=== PATIENT | female | born 1980 | race Caucasian/White ===

== ENCOUNTER 2023-11-23 16:50 | Inpatient (IN) | payer SELFPAY ==
[2023-11-23 16:51] VITALS: BP 122/101; PULSE 88; RESP 18; TEMP 37.1; O2SAT 95
--- NOTE | 2023-11-23 16:59 | ED.C_ITS ---
HPI - Psych 2 General: Chief Complaint: Psychiatric Symptoms Stated Complaint: SI Time Seen by Provider: 11/23/23 16:57 History of Present Illness: 43-year-old female presents to the [facility] ency room with complaints of suicidal ideation. She is currently having significant life stressors with an ongoing divorce. Patient states she has previously been treated for bipolar and has had 2 previous admissions for suicidal ideation at facilities in [facility]. Patient currently is not on any medications due to financial constraints. She is struggling with the divorce and also states that her significant other has a restraining order against her. Related Data Home Medications Medication Instructions Recorded Confirmed No Known Home Medications 11/23/23 11/23/23 Allergies Allergy/AdvReac Type Severity Reaction Status Date / Time Sulfa (Sulfonamide Allergy ALGY-Hives Verified 11/23/23 16:58 Antibiotics) Review of Systems 2 Const: Denies: fever(s) or chills Card: Denies: chest pain Resp: Denies: dyspnea GI: Denies: abdominal pain : Denies: dysuria, urinary frequency or urinary urgency Musc: Denies: neck pain or back pain Skin/Breast: Denies: rash Physical Exam 2 Const: GENERAL APPEARANCE: cooperative ORIENTATION/CONSCIOUSNESS: Yes awake, Yes oriented to person, Yes oriented to place and Yes oriented to time HENMT: COMMON NORMALS: normocephalic, atraumatic and hearing grossly normal bilaterally HEAD & SCALP: normocephalic and atraumatic Resp: COMMON NORMALS: normal respiratory effort, No retractions, No use of accessory muscles and clear to auscultation bilaterally AUSCULTATION: clear to auscultation bilaterally Cardio: COMMON NORMALS: regular rate, regular rhythm and No murmurs present (Cardio) RATE: regular rate RHYTHM: regular rhythm GI: COMMON NORMALS: Soft to palpation and No hepatosplenomegaly present A USCULTATION: Yes normoactive bowel sounds PALPATION: Yes Soft to palpation, No Tenderness to palpation present (GI), No Guarding due to palpation present (GI) and Yes No hepatosplenomegaly present Extremity: COMMON NORMALS: normal to inspection, capillary refill normal, no clubbing, cyanosis or edema, no calf tenderness and no pedal edema Neuro: SENSORIUM/ORIENTATION: Yes oriented to person, Yes oriented to place and Yes oriented to time Skin: COMMON NORMALS: no rashes or lesions noted GENERAL SKIN EXAM: no rashes or lesions noted OTHER: Laceration with slight mucousy drainage between the fourth and fifth fingers. No epitrochlear lymph nodes no localized induration Course 2 Vital Signs: Vital signs: Vital Signs Temperature 98.4 F 11/24/23 19:43 Pulse Rate 74 11/24/23 19:43 Respiratory Rate 16 11/24/23 19:43 Blood Pressure 127/87 11/24/23 19:43 Pulse Oximetry 99 11/24/23 19:43 Oxygen Delivery Me thod Room Air 11/24/23 19:43 MDM - Psych Medical Decision Making Patient presents with with depression today for significant life stressors. She is expressing suicidal ideation directly with no specific plan at this time. Discussed with Dr. Romero will admit for suicidal ideation patient placed on 96-hour hold. Medical Records I reviewed the patient's medical records. Lab Data I reviewed the patient's lab results. 11/23/23 17:22 11/23/23 17:22 Laboratory Results WBC 15.54 10^3/uL (3.29-11.43) H 11/23/23 17:22 RBC 4.44 10^6/uL (3.85-5.65) 11/23/23 17:22 Hgb 13.20 g/dL (11.27-16.99) 11/23/23 17:22 Hct 40.4 % (36-47) 11/23/23 17:22 MCV 91.0 fl (85-98) 11/23/23 17:22 MCH 29.7 pg (27-33) 11/23/23 17: MCHC 32.7 g/dL (30-55) 11/23/23 17:22 RDW 13.5 % (12.1-15.1) 11/23/23 17:22 Plt Count 333 10^3/cmm (157-399) 11/23/23 17:22 MPV 9.5 fL (7.4-10.4) 11/23/23 17:22 Neut % (Auto) 76.6 % 11/23/23 17:22 Lymph % (Auto) 17.3 % 11/23/23 17:22 [place] % (Auto) 4.5 % 11/23/23 17:22 Eos % (Auto) 0.8 % 11/23/23 17:22 Baso % (Auto) 0.3 % 11/23/23 17:22 Neut # (Auto) 11.90 10^3/uL (1.8-7.7) H 11/23/23 17:22 Lymph # (Auto) 2.7 10^3/uL (0.8-4.8) 11/23/23 17:22 [place] # (Auto) 0.7 10^3/uL (0.2-0.9) 11/23/23 17:22 Eos # (Auto) 0.1 10^3/uL (0.0-0.8) 11/23/23 17:22 Baso # (Auto) 0.1 10^3/uL (0.0-0.1) 11/23/23 17:22 Nucleated RBC % (auto) 0 % 11/23/23 17:22 Nucleated RBCs # 0.0 /100WBC 11/23/23 17:22 Sodium 136 mmol/L (136-145) 11/23/23 17:22 Potassium 3.8 mmol/L (3.5-5.1) 11/23/23 17:22 Chloride 100 mmol/L (98-107) 11/23/23 17:22 Carbon Dioxide 26 mmol/L (22-29) 11/23/23 17:22 Anion Gap 13.8 (5-19) 11/23/23 17:22 BUN 17 mg/dL (6-20) 11/23/23 17:22 Creatinine 0.6 mg/dL (0.5-0.9) 11/23/23 17:22 GFR Calculation 109.6 mL/min (90-130) 11/23/23 17:22 Glucose 101 mg/dL (65-115) 11/23/23 17:22 Calculated Osmolality 284 mOsm/kg (285-295) L 11/23/23 17:22 Calcium 9.0 mg/dL (8.5-10.5) 11/23/23 17:22 Total Bilirubin 0.2 mg/dL (0.15-1.2) 11/23/23 17:22 AST 11 U/L (0-32) 11/23/23 17:22 ALT 16 U/L (0-33) 11/23/23 17:22 Alkaline Phosphatase 73 U/L (35-105) 11/23/23 17:22 Total Protein 6.5 g/dL (6.6-8.7) L 11/23/23 17:22 Albumin 3.9 g/dL (3.5-5.2) 11/23/23 17:22 Globulin 2.6 g/dL (1.3-4.6) 11/23/23 17:22 Salicylates < 0.3 mg/dL (3-10) L 11/23/23 17:22 Acetaminophen < 5.0 ug/mL (10-30) L 11/23/23 17:22 Ethyl Alcohol < 10 mg/dL (0-10) 11/23/23 17:22 No radiology studies performed this visit Discharge Plan Discharge Patient Disposition: Admitted As Inpatient Admit Provider: Paul Romero Clinical Impression: Suicidal ideation, Depression Condition: Stable Coding Level of Care Code ED [employer] for [employer]by
[2023-11-23 17:39] LABS: Basophils # 0.1 10^3/uL (0.0-0.1); Basophils % 0.3 %; Eosinophils # 0.1 10^3/uL (0.0-0.8); Eosinophils % 0.8 %; Hematocrit 40.4 % (36-47); Lymphocytes # 2.7 10^3/uL (0.8-4.8); Lymphocytes % 17.3 %; Mean Corpuscular HGB Conc 32.7 g/dL (30-55); Mean Corpuscular Hemoglobin 29.7 pg (27-33); Mean Platelet Volume 9.5 fL (7.4-10.4); Monocytes # 0.7 10^3/uL (0.2-0.9); Monocytes % 4.5 %; Neutrophils % 76.6 %; Nucleated Red Blood Cells % 0 %; Platelet Count 333 10^3/cmm (157-399); Red Blood Count 4.44 10^6/uL (3.85-5.65); Red Cell Distribution Width 13.5 % (12.1-15.1); White Blood Count 15.54 10^3/uL (3.29-11.43)
[2023-11-23 18:03] LABS: Alanine Aminotransferase 16 U/L (0-33); Albumin Level 3.9 g/dL (3.5-5.2); Alkaline Phosphatase 73 U/L (35-105); Anion Gap 13.8 (5-19); Aspartate Amino Transferase 11 U/L (0-32); Blood Urea Nitrogen 17 mg/dL (6-20); Carbon Dioxide 26 mmol/L (22-29); Chloride 100 mmol/L (98-107); Globulin 2.6 g/dL (1.3-4.6); Glomerular Filtration Rate 109.6 mL/min (90-130); Glucose 101 mg/dL (65-115); Osmolality Calculated 284 mOsm/kg (285-295); Potassium 3.8 mmol/L (3.5-5.1); Sodium 136 mmol/L (136-145); Total Bilirubin 0.2 mg/dL (0.15-1.2); Total Protein 6.5 g/dL (6.6-8.7)
[2023-11-23 18:11] LABS: Acetaminophen < 5.0 ug/mL (10-30); Salicylate < 0.3 mg/dL (3-10)
--- NOTE | 2023-11-23 19:19 | PC.NURSE ---
attempted to call report at this time. unable to give d/t nurses being in report.
[2023-11-23 19:37] LABS: Alcohol Level < 10 mg/dL (0-10)
[2023-11-23 19:46] VITALS: BP 154/73; PULSE 88; O2SAT 99
[2023-11-23 19:48] VITALS: BP 138/88; PULSE 91; RESP 20; TEMP 36.7; O2SAT 98
[2023-11-23] MEDS: cephALEXin 500 mg Capsule PO (20:44)
[2023-11-23] MEDS: tetanus-dipt-pertussis 0.5 mL SDV IM (20:45)
[2023-11-23] MEDS: trazodone 50 mg Tablet PO (21:03)
[2023-11-23] MEDS: hyDROXYzine 25 mg Capsule 50 MG PO (21:03)
[2023-11-23 21:37] LABS: Bilirubin Urine Negative (Negative); Blood Urine Negative (Negative); Glucose Urine UA Negative (Normal); Ketones Urine Negative (Negative); Leukocyte Esterase Urine 1+ (Negative); Nitrate Urine Negative (Negative); Protein Urine Negative (Negative); Specific Gravity, Urine 1.014 (1.005-1.030); Urine Appearance Clear (CLEAR); Urine Color Yellow (Yellow); Urobilinogen Urine 0.2 mg/dL (Negative); pH Urine 6.5 (5-7)
[2023-11-23 21:39] LABS: Add Urine Microscopic? YES; Bacteria Urine None Seen /hpf; Hyaline Casts Urine 0-4 /lpf; RBC Urine 0-2 /hpf (0-2)
[2023-11-23 21:53] LABS: Amphetamines Screen Urine Negative (Negative); Barbiturates Screen Urine Negative (Negative); Benzodiazepines Screen Urine Positive (Negative); Cocaine Screen Urine Negative (Negative); Opiate Screen Urine Negative (Negative); PCP Screen Urine Negative (Negative); THC Screen Urine Positive (Negative)
[2023-11-23 22:00] VITALS: BP 138/88; PULSE 91; RESP 20; TEMP 36.7; O2SAT 98
[2023-11-24 06:00] VITALS: BP 112/73; PULSE 72; RESP 18; TEMP 36.6; O2SAT 97
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
[2023-11-24] MEDS: cephALEXin 500 mg Capsule PO ×3 (09:23→20:59)
[2023-11-24] MEDS: hyDROXYzine 25 mg Capsule 50 MG PO ×3 (09:23→20:59)
[2023-11-24] MEDS: ibuprofen 600 mg Tablet PO ×2 (09:36→21:00)
[2023-11-24] MEDS: flu vacc pf 24-25 (6 mos+) SYRINGE 45 MCG IM (09:41)
[2023-11-24 14:00] VITALS: BP 113/70; PULSE 81; RESP 16; TEMP 36.6; O2SAT 98
[2023-11-24 19:43] VITALS: BP 127/87; PULSE 74; RESP 16; TEMP 36.9; O2SAT 99
[2023-11-24] MEDS: trazodone 50 mg Tablet PO (20:59)
[2023-11-25 06:00] VITALS: BP 119/77; PULSE 80; RESP 16; TEMP 36.8; O2SAT 98
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
[2023-11-25] MEDS: fluoxetine 20 mg Capsule PO (09:05)
[2023-11-25] MEDS: cephALEXin 500 mg Capsule PO ×3 (09:05→21:27)
[2023-11-25] MEDS: hyDROXYzine 25 mg Capsule 50 MG PO ×2 (09:08→16:37)
[2023-11-25] MEDS: OLANZapine 5 mg ODT PO (10:32)
[2023-11-25 14:00] VITALS: BP 119/74; PULSE 86; RESP 16; TEMP 37.1; O2SAT 98
[2023-11-25] MEDS: acetaminophen 325 mg Tablet 650 MG PO (16:37)
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
[2023-11-25 20:15] VITALS: BP 126/79; PULSE 80; RESP 16; TEMP 36.8; O2SAT 97
[2023-11-25] MEDS: trazodone 50 mg Tablet PO (21:27)
[2023-11-26 06:00] VITALS: BP 111/74; PULSE 92; RESP 16; TEMP 37.1; O2SAT 99
[2023-11-26] MEDS: fluoxetine 20 mg Capsule PO (09:21)
[2023-11-26] MEDS: OLANZapine 5 mg ODT PO (09:21)
[2023-11-26] MEDS: cephALEXin 500 mg Capsule PO ×2 (09:21→14:55)
[2023-11-26] MEDS: acetaminophen 325 mg Tablet 650 MG PO (09:21)
[2023-11-26 14:00] VITALS: BP 110/77; PULSE 83; RESP 16; TEMP 36.8; O2SAT 98
[2023-11-26] MEDS: hyDROXYzine 25 mg Capsule 50 MG PO (16:13)
[2023-11-26] MEDS: ibuprofen 600 mg Tablet PO (18:27)
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
--- NOTE | 2023-11-26 20:24 | CTR_ITS ---
PROCEDURE INFORMATION: Exam: CT Left Upper Extremity With Contrast, Hand Exam date and time: 11/26/2023 8:58 PM Age: 43 years old Clinical indication: Patient HX: Patient has deep open wound to crease inbetween 4th and 5th digits. ; Additional info: R/O deep infection TECHNIQUE: Imaging protocol: Computed tomography of the left upper extremity with contrast. Exam focused on the hand. Radiation optimization: All CT scans at this facility use at least one of these dose optimization techniques: automated exposure control; mA and/or kV adjustment per patient size (includes targeted exams where dose is matched to clinical indication); or iterative reconstruction. Contrast material: OMNI 350; Contrast volume: 100 ml; Contrast route: INTRAVENOUS (IV); COMPARISON: No relevant prior studies available. RADIATION DOSE METRICS: Total DLP (mGy-cm): 245.28 FINDINGS: Bones/joints: Normal. No acute fracture or dislocation. Soft tissues: Apparent wound in the 4th web space with skin and subcutaneous edema and thickening extending to the base of the 5th finger, without drainable fluid collection. No evidence of myositis or involvement of the interosseous or hypo thenar musculature. No soft tissue gas. No radiopaque foreign body. CT/CT hand LT w con [id number] IMPRESSION: Fourth webspace wound skin and subcutaneous edema and thickening but no evidence of abscess formation , myositis or deep palmar involvement at this time.
[2023-11-26 20:46] VITALS: BP 136/78; PULSE 85; RESP 17; TEMP 36.6; O2SAT 98
[2023-11-26] MEDS: amoxicillin-clav 875-125 mg Tablet 1 TAB PO (20:46)
[2023-11-26] MEDS: doxycycline 100 mg Tablet PO (20:46)
[2023-11-26] MEDS: iohexol 350 mg/mL 500 mL Btl (per mL) IV (21:07)
[2023-11-26] MEDS: trazodone 50 mg Tablet PO (21:31)
--- NOTE | 2023-11-27 05:49 | PC.NURSE ---
MILLY RN FROM [facility] PLACED IV FOR PATIENT TO HAVE FOR CT OF HER LEFT HAND.THIS NURSE AND HUMAN RESOURCES CONSULTANT BON ESCORTED PT TO CT BY WHEELCHAIR AT 2054. PT RETURNED TO UNIT AND IV WAS REMOVED BY THIS NURSE AT 2107.
[2023-11-27 06:00] VITALS: BP 123/84; PULSE 83; RESP 18; TEMP 36.6; O2SAT 97
[2023-11-27 06:45] LABS: Basophils % 0.6 %; Eosinophils # 0.1 10^3/uL (0.0-0.8); Eosinophils % 1.4 %; Hematocrit 40.7 % (36-47); Lymphocytes # 1.4 10^3/uL (0.8-4.8); Lymphocytes % 19.3 %; Mean Corpuscular HGB Conc 31.9 g/dL (30-55); Mean Corpuscular Hemoglobin 29.2 pg (27-33); Mean Corpuscular Volume 91.5 fl (85-98); Mean Platelet Volume 9.5 fL (7.4-10.4); Monocytes # 0.4 10^3/uL (0.2-0.9); Monocytes % 5.3 %; Neutrophils # 5.09 10^3/uL (1.8-7.7); Nucleated Red Blood Cells % 0 %; Platelet Count 271 10^3/cmm (157-399); Red Blood Count 4.45 10^6/uL (3.85-5.65); Red Cell Distribution Width 13.3 % (12.1-15.1); White Blood Count 6.98 10^3/uL (3.29-11.43)
[2023-11-27 06:52] LABS: Erythrocyte Sedimentation Rate 10 mm/hr (0-15)
[2023-11-27 07:05] LABS: Alanine Aminotransferase 13 U/L (0-33); Albumin Level 3.6 g/dL (3.5-5.2); Alkaline Phosphatase 61 U/L (35-105); Anion Gap 13.2 (5-19); Aspartate Amino Transferase 11 U/L (0-32); Blood Urea Nitrogen 11 mg/dL (6-20); Calcium 8.5 mg/dL (8.5-10.5); Carbon Dioxide 23 mmol/L (22-29); Chloride 105 mmol/L (98-107); Globulin 2.6 g/dL (1.3-4.6); Glomerular Filtration Rate 135.3 mL/min (90-130); Glucose 97 mg/dL (65-115); Osmolality Calculated 283 mOsm/kg (285-295); Potassium 4.2 mmol/L (3.5-5.1); Sodium 137 mmol/L (136-145); Total Bilirubin 0.2 mg/dL (0.15-1.2); Total Protein 6.2 g/dL (6.6-8.7)
[2023-11-27 07:11] LABS: Procalcitonin 0.02 ng/mL (0-0.5)
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
[2023-11-27] MEDS: fluoxetine 20 mg Capsule PO (08:45)
[2023-11-27] MEDS: amoxicillin-clav 875-125 mg Tablet 1 TAB PO ×2 (08:45→18:28)
[2023-11-27] MEDS: doxycycline 100 mg Tablet PO ×2 (08:45→18:28)
[2023-11-27] MEDS: hyDROXYzine 25 mg Capsule 50 MG PO ×3 (08:45→20:03)
[2023-11-27] MEDS: ibuprofen 600 mg Tablet PO ×2 (10:21→20:03)
[2023-11-27 14:00] VITALS: BP 117/69; PULSE 113; RESP 17; TEMP 36.9; O2SAT 95
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
[2023-11-27] MEDS: trazodone 50 mg Tablet PO (20:03)
[2023-11-27 20:10] VITALS: BP 151/77; PULSE 80; RESP 17; TEMP 36.9; O2SAT 98
--- NOTE | 2023-11-27 21:16 | PC.NURSE ---
Flushed patients wound with saline flushes x3 and placed a piece of gauze inbetween her fingers and another piece of gauze around her fingers and secured them with paper tape. patient tolerated well.
[2023-11-28 06:00] VITALS: BP 105/70; PULSE 95; RESP 16; TEMP 36.9; O2SAT 97
[2023-11-28] MEDS: amoxicillin-clav 875-125 mg Tablet 1 TAB PO ×2 (08:20→17:13)
[2023-11-28] MEDS: doxycycline 100 mg Tablet PO ×2 (08:20→17:13)
[2023-11-28] MEDS: fluoxetine 20 mg Capsule PO (08:20)
[2023-11-28] MEDS: OLANZapine 5 mg ODT PO ×2 (08:23→14:33)
[2023-11-28] MEDS: hyDROXYzine 25 mg Capsule 50 MG PO ×2 (10:29→20:26)
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
[2023-11-28 14:00] VITALS: BP 123/74; PULSE 74; RESP 16; TEMP 36.8; O2SAT 98
[2023-11-28] MEDS: ibuprofen 600 mg Tablet PO ×2 (14:33→20:25)
[2023-11-28] MEDS: trazodone 50 mg Tablet PO (20:26)
[2023-11-28 21:09] VITALS: BP 126/74; PULSE 83; RESP 18; TEMP 37.2; O2SAT 97
[2023-11-29 06:00] VITALS: BP 118/71; PULSE 81; RESP 16; TEMP 37; O2SAT 96
[2023-11-29] MEDS: fluoxetine 20 mg Capsule PO (08:36)
[2023-11-29] MEDS: amoxicillin-clav 875-125 mg Tablet 1 TAB PO ×2 (08:36→18:11)
[2023-11-29] MEDS: doxycycline 100 mg Tablet PO ×2 (08:36→18:10)
[2023-11-29] MEDS: OLANZapine 5 mg ODT PO (08:36)
[2023-11-29] MEDS: ibuprofen 600 mg Tablet PO ×2 (09:09→19:30)
[2023-11-29] MEDS: hyDROXYzine 25 mg Capsule 50 MG PO (12:16)
[2023-11-29] MEDS: guaiFENesin-dextromethorphan UDC 10 mL PO ×3 (13:01→22:16)
--- NOTE | 2023-11-29 13:51 | P.PN_ITS ---
Subjective 2 Subjective: Seen this morning. Patient doing better. Vitals/I&O/Wt Last Vital Signs Temp 98.6 F 11/29/23 06:00 Pulse 81 11/29/23 06:00 Resp 16 11/29/23 06:00 BP 118/71 11/29/23 06:00 Pulse Ox 96 11/29/23 06:00 O2 Del Method Room Air 11/27/23 06:00 Weight last 48 hrs Weight 70.67 kg Physical Exam 2 Narrative: Evaluated left hand fourth and fifth webspace. No more drainage noted. Wound appears dry and granulation tissue present. Swelling has improved as well. Data 11/27/23 06:28 11/27/23 06:28 A&P Assessment and plan (1) Infected hand: Plan #Hand laceration ? CT hand shows: Fourth webspace wound skin and subcutaneous edema and thickening but no evidence of abscess formation , myositis or deep palmar involvement at this time. ? CRP sed rate negative, white count normal ? Continue to treat with doxycycline 100 twice daily x 10 days, Augmentin 875 twice daily x 10 days total. ? Patient to follow-up with primary care doctor as outpatient after discharge. ? If wound worsens may warrant repeat imaging, IV antibiotics and the potential of I&D however at this time there is no definable abscess. ? Discussed with patient against time fourth and fifth digit together. ? Clean with sterile gauze and normal saline daily. #Anxiety, depression, bipolar disorder, suicidal ideation?as per psych. 11/28 Evaluated hand wound this morning. Continue treated with doxycycline and Augmentin for 10 days total and as planned above. Medicine will sign off. Please recall if needed. Attestations 2 Medical Necessity Statement*: Defer to primary team. Diagnoses Infected hand L08.9
[2023-11-29 14:00] VITALS: BP 141/79; PULSE 79; RESP 16; TEMP 37.2; O2SAT 96
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
[2023-11-29] MEDS: trazodone 50 mg Tablet PO ×2 (19:30→20:46)
[2023-11-29 21:01] VITALS: BP 130/84; PULSE 85; RESP 18; TEMP 36.8; O2SAT 98
[2023-11-30] MEDS: acetaminophen 325 mg Tablet 650 MG PO (00:20)
[2023-11-30 06:00] VITALS: BP 134/61; PULSE 83; RESP 16; TEMP 36.7; O2SAT 99
[2023-11-30] MEDS: guaiFENesin-dextromethorphan UDC 10 mL PO ×2 (06:12→19:08)
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
[2023-11-30] MEDS: ibuprofen 600 mg Tablet PO ×2 (08:04→17:51)
[2023-11-30] MEDS: fluoxetine 20 mg Capsule PO (08:05)
[2023-11-30] MEDS: doxycycline 100 mg Tablet PO ×2 (08:05→17:24)
[2023-11-30] MEDS: amoxicillin-clav 875-125 mg Tablet 1 TAB PO ×2 (08:05→17:24)
[2023-11-30] MEDS: hyDROXYzine 25 mg Capsule 50 MG PO ×2 (08:07→19:08)
[2023-11-30] MEDS: OLANZapine 5 mg ODT PO (12:36)
[2023-11-30 14:00] VITALS: BP 159/75; PULSE 95; RESP 16; TEMP 36.9; O2SAT 98
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
[2023-11-30] MEDS: trazodone 50 mg Tablet PO (19:08)
[2023-11-30 19:27] VITALS: BP 142/84; PULSE 83; RESP 18; TEMP 36.7; O2SAT 98
[2023-12-01 06:00] VITALS: BP 153/97; PULSE 89; RESP 18; TEMP 36.7; O2SAT 98
[2023-12-01] MEDS: guaiFENesin-dextromethorphan UDC 10 mL PO ×2 (06:47→11:55)
[2023-12-01] MEDS: blistex lip oint 7 gm Tube 1 APPLIC TOPICAL (07:38)
[2023-12-01] MEDS: amoxicillin-clav 875-125 mg Tablet 1 TAB PO (08:05)
[2023-12-01] MEDS: doxycycline 100 mg Tablet PO (08:06)
[2023-12-01] MEDS: fluoxetine 20 mg Capsule PO (08:06)
[2023-12-01] MEDS: hyDROXYzine 25 mg Capsule 50 MG PO (08:08)
[2023-12-01 11:04] VITALS: BP 153/97; PULSE 89; RESP 18; TEMP 36.7; O2SAT 98
[2023-12-01] MEDS: OLANZapine 5 mg ODT PO (11:55)
[2023-12-01] MEDS: ibuprofen 600 mg Tablet PO (11:55)
== END 2023-12-01 15:48 | disposition home or self-care (01) | DRG 885 ==
LOC: ER 17:42 → NP 18:07
PROVIDERS: Internal Medicine; Admitting Provider Psychiatry & Neurology Psychiatry; Emergency Provider Family Medicine; Visit Provider Psychiatry & Neurology Psychiatry
DX: F31.9 Bipolar disorder, unspecified (principal); R45.851 Suicidal ideations; T50.916A Underdosing of multiple unspecified drugs, medicaments and biological substances, initial encounter; Z91.141 Patient's other noncompliance with medication regimen due to financial hardship; Z63.0 Problems in relationship with spouse or partner; Z87.891 Personal history of nicotine dependence; F10.90 Alcohol use, unspecified, uncomplicated; F12.90 Cannabis use, unspecified, uncomplicated; F14.91 Cocaine use, unspecified, in remission; Z91.51 Personal history of suicidal behavior; V89.2XXD Person injured in unspecified motor-vehicle accident, traffic, subsequent encounter; L08.9 Local infection of the skin and subcutaneous tissue, unspecified
CPT/HCPCS: 36415; 73201; 80053; 80306; 80307; 81001; 84145; 85025; 85651; 86140; 87040; 90471; 90686; 90715; 97150; 97165; 99285